=== PATIENT | male | born 1945 | race Caucasian/White ===

== ENCOUNTER → 2018-08-07 11:50 | Outpatient (CLI) | payer OTHER ==
--- NOTE | ~2018-08-07 | EC ---
PATIENT:EDGARD NORTON DATE OF SERVICE: 08/07/18 SEX: M MEDICAL RECORD: [id number] DATE OF : [birth year] LOCATION:D[facility] AGE OF PATIENT: 72 ADMISSION DATE: 08/07/18 REFERRING PHYSICIAN: INTERPRETING PHYSICIAN: JULIETA ELMORE MD ECHOCARDIOGRAM REPORT ECHO CHARGES 4 ECHO COMPLETE Date: 08/07/18 CLINICAL DIAGNOSIS: ISCHEMIC HEART DISEASE/SOB ECHOCARDIOGRAPHIC MEASUREMENTS (adult normal given) AC root (d.<3.7cm) 4.0 cm LV Septum d (<1.2 cm> 1.6 cm Valve Excursion 2.2 cm LV Septum (systole) 2.5 cm Left Atria (s.<4.0cm> 4.0 cm LVPW d(<1.2cm) 1.7 cm RV (d.<2.3cm) 3.5 cm LVPW (sytole) 1.9 cm LV diastole(<5.6CM) 7.2 cm MV E-F(>70mm/sec) cm LV systole 5.4 cm LVOT Diameter 2.1 cm MV exc.(>10mm) cm Est.ejection fraction (50-75%) % DOPPLER: LVIT cm/sec A 56.0 cm/sec E 68.0 cm/sec LA cm/sec RVSP 26.4 mmHg LVOT 64.0 cm/sec AOP1/2T m/s Asc. Ao 128 cm/sec RVOT 49.0 cm/sec RA cm/sec PA 81.0 cm/sec AV Gradient Peak 6.6 mmHg AV Mean 3.2 mmHg AV Area 1.7 cm MV Gradient Peak 2.6 mmHg MV Mean 1.1 mmHg MV Area cm COMMENTS: Manager Development: 1 MONIQUE MTZOE Bus Aide: 1 Dr. Elmore TAPE# PACS Pericardial Effusion N DATE OF SERVICE: 08/07/2018 FINDINGS: 1. Left ventricular chamber size is dilated. Left ventricular systolic function is moderately reduced. Overall ejection fraction 35% to 40%. There is mild global hypokinesis throughout all segments, but no discrete wall motion abnormalities are present. 2. Left atrium is within normal limits at 4.0 cm. Right atrium and right ventricle chamber sizes are mildly dilated. 3. Valvular structures have normal structure and motion. ECHOCARDIOGRAM REPORT [id number] EDGARD NORTON 4. Doppler interrogation reveals moderate mitral regurgitation and mild tricuspid regurgitation. No other valvular insufficiency or stenosis. Pulmonary systolic pressure is estimated at 26 mmHg. 5. No evidence of pericardial effusion or left ventricular thrombus. TRANSINT:[id number] Voice Confirmation ID: [id number] DOCUMENT ID: [id number] JULIETA ELMORE MD at 1729 CC: [id number] DICTATION DATE: 08/07/18 1547 FINISH FILER: 08/07/18 1635 DEP CLI 08/07/18 [id number] [place] [id number]
== END | disposition home or self-care (01) ==
LOC: D.ECHO 11:50 → D.RT 14:00
DX: I25.9 Chronic ischemic heart disease, unspecified (principal); R06.02 Shortness of breath